=== PATIENT | female | born 1975 | race Caucasian/White ===

== ENCOUNTER 2016-09-27 08:57 | Day surgery (SDC) | payer OTHER ==
--- NOTE | 2016-09-21 09:46 | HP ---
Admitting History and Physical - Primary Care Physician PCP: Elmer River - Admission Chief Complaint: Right breast mass/papilloma History of Present Illness: 40 year old premenapausal female presents with screening mammogram showing dense breast tissue US showed mutiple cysts and tw areas to be bx at 12:00 and 2 :00 right breast. US core bx revealed PASH at 2:00 and transected papilloma 12:00. History Source: Patient Limitations to Obtaining History: No Limitations - Past Surgical History Additional Past Surgical History: Right ankle repair with removal of hardware - Smoking History Smoking history: Never smoked Have you smoked in the past 12 months: No - Alcohol/Substance Use Hx Alcohol Use: No Home Medications - Allergies Allergies/Adverse Reactions: Allergies Allergy/AdvReac Type Severity Reaction Status Date / Time No Known Allergies Allergy Verified 09/14/16 16:00 Family Disease History - Family Disease History Family Disease History: CA: Grandparent (pat GM CRC 60's), Mother (Breast ca 49-50) Physical Examination Constitutional: Yes: Well Nourished, No Distress Breast(s): Yes: Other (Symmetrical and diffusely nodular without suspicious mass. post bx changes right breast no adenopathy) Problem List - Problems (1) Mass of right breast Code(s): N63 - UNSPECIFIED LUMP IN BREAST Assessment/Plan Right breast wide excision with mammogram needle localization
[2016-09-23 15:01] VITALS: BMI 24.1
[2016-09-27] MEDS ORDERED: LIDOCAINE HCL 1%, 10 MG/ML (20ML VIAL) ONE (12:31)
[2016-09-27] MEDS ORDERED: ISOSULFAN BLUE 10 MG/ML VIAL SQ ONE (12:31)
[2016-09-27] MEDS ORDERED: GUM MASTIC/STORAX/MSAL/ALCOHOL 1 DRP DROPSBTL MC ONE (12:32)
[2016-09-27] MEDS ORDERED: MIDAZOLAM HCL 2 MG/2 ML SINGLE DOSE VIAL ONE (12:48)
[2016-09-27] MEDS ORDERED: PROPOFOL 20 ML ONE ×2 (12:48)
[2016-09-27] MEDS ORDERED: LIDOCAINE HCL/PF 2% SDV 5ML VIAL ONE (12:49)
[2016-09-27] MEDS ORDERED: ONDANSETRON 4 MG/2 ML VIAL ONE (13:34)
[2016-09-27] MEDS ORDERED: DEXAMETHASONE SOD PHOSPHATE 4 MG/1 ML VIAL ONE (13:34)
[2016-09-27] MEDS ORDERED: KETOROLAC TROMETHAMINE 30 MG/1 ML VIAL ONE (13:34)
[2016-09-27] MEDS ORDERED: ONDANSETRON 4 MG/2 ML VIAL IVPB PRN (13:54)
[2016-09-27] MEDS ORDERED: KETOROLAC TROMETHAMINE 30 MG/1 ML VIAL IVPUSH PRN (13:54)
[2016-09-27] MEDS ORDERED: DEXTROSE 5%-0.45% SALINE 1,000 ML IV SCH (14:00)
[2016-09-27] MEDS ORDERED: ACETAMINOPHEN 325 MG TABLET (FP) PO PRN (14:01)
[2016-09-27] MEDS ORDERED: LACTATED RINGERS SOLUTION 1,000 ML IV SCH (14:15)
[2016-09-27 14:21] VITALS: TEMP 97.5
[2016-09-27 15:01] VITALS: BP 112/65; PULSE 72
[2016-09-27] MEDS ORDERED: oxyCODONE HCL 5 MG TABLET PO PRN ×2 (15:28→15:29)
--- NOTE | 2016-09-28 19:15 | OP ---
DATE OF OPERATION: 09/27/2016 PREOPERATIVE DIAGNOSIS: Right breast papilloma. POSTOPERATIVE DIAGNOSIS: Right breast papilloma. PROCEDURE: Right breast mammographically localized wide excision. ANESTHESIA: IV sedation with local. ATTENDING SURGEON: Elmer River MD BOOSTER PUMP OILER: Jayson Ho ESTIMATED BLOOD LOSS: Minimal. COMPLICATIONS: None. DESCRIPTION OF PROCEDURE: The patient was made aware of the risks and benefits of the procedure and consented. Preoperatively, the patient went to the radiology suite where a needle and wire were placed next to the indexed lesion. The patient was then placed in the supine position on the operating room table and after IV sedation was administered, the operative site was prepped and draped in the usual sterile fashion. Lidocaine 1% was used for local anesthesia. A curvilinear incision was made and using electrocautery, a thick skin flap was made to the needle. The needle was withdrawn through puncture site and the wire through the wound. Tissues around the wire were then sharply excised and submitted a short suture superior and long suture lateral. Specimen radiograph confirmed the presence of the indexed lesion. Palpation of the rest of the wound revealed nothing suspicious. Wound was copiously irrigated with normal saline. Hemostasis maintained by electrocautery. The wound was then closed with deep 3-0 Vicryl followed by a running subcuticular 4-0 Monocryl. Dermabond and sterile dressing with a compression bra was then applied and the patient tolerated the procedure well and was transferred to the recovery room in excellent condition. ELMER RIVER M.D. [id number]
--- NOTE | 2016-09-29 13:06 | PATH ---
Surgical Pathology Report Patient Name: YASHIRA ROMERO [facility]. Rec. #: [id number] /Age/Gender: 1975 (Age: 41) / F Account: [id number] Location: [facility] Taken: 09/27/2016 Received: 09/27/2016 Reported: 09/29/2016 Physicians: Elmer River M.D. Specimen(s) Received RIGHT BREAST WIDE EXCISION Clinical History Papilloma Final Diagnosis RIGHT BREAST, WIDE EXCISION: BENIGN BREAST TISSUE WITH FIBROCYSTIC CHANGES INCLUDING USUAL DUCTAL HYPERPLASIA (UDH), COLUMNAR CELL CHANGE, STROMAL FIBROSIS, DUCTAL DILATATION, AND CYSTIC APOCRINE METAPLASIA. SMALL FIBROADENOMA PRESENT. CHANGES CONSISTENT WITH PRIOR BIOPSY SITE PRESENT. FOCAL AREAS WITH STROMAL CHANGES HISTOLOGICALLY CONSISTENT WITH PSEUDO-ANGIOMATOUS STROMAL HYPERPLASIA (PASH) PRESENT. Comment: Also see prior slide review [id number]. Electronically Signed Humberto Mello M.D. Gross Description Received in formalin, labeled "right breast wide excision," is a 3.5 x 2.7 x 1.1 cm. lopez-yellow, irregular, portion of fibroadipose tissue. There is a short suture marking the superior aspect and a long suture marking the lateral aspect, per the surgeon. There is no needle localization wire present. There is no skin or nipple present. The specimen is inked as follows: superior and lateral blue; inferior green; medial yellow; anterior red; deep black. The specimen is serially sectioned from lateral to medial. Sectioning reveals multifocal dense, white, firm fibrous tissue. The specimen is entirely and sequentially submitted in 8 cassettes with the lateral margin in cassette 1 and the medial margin in cassette 8. Time to formalin fixation: 5 minutes Total formalin fixation time: Approximately 28 hours. /09/28/2016 saudi09/28/2016
== END 2016-09-27 15:00 | disposition home or self-care (01) ==
LOC: FASU 08:57
PROVIDERS: ATTEND Surgery Surgical Oncology
PROC: 0HBT0ZX Excision of Right Breast, Open Approach, Diagnostic (ICD-10-PCS; principal; 2016-09-27 13:18)
DX: D24.1 Benign neoplasm of right breast (principal); N60.81 Other benign mammary dysplasias of right breast; N60.31 Fibrosclerosis of right breast; N64.89 Other specified disorders of breast
CPT/HCPCS: 19281; 84703; 88307-TC